=== PATIENT | female | born 2000 | race American Indian/Alaskan Native ===

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

== ENCOUNTER 2022-05-25 12:57 | Emergency (ER) | payer MEDICAID ==
[2022-05-25 14:22] LABS: CORONAVIRUS COVID-19 NAA NEGATIVE (NEGATIVE); RESPIRATORY SYNCYTIAL VIR NAA NEGATIVE (NEGATIVE)
[2022-05-25] MEDS ORDERED: Sodium Chloride 0.9% 10 ML Syringe FLUSH PRN (16:07)
[2022-05-25] MEDS ORDERED: Famotidine 20 MG/2 ML SDV IVPUSH ONE (16:08)
[2022-05-25] MEDS ORDERED: Ondansetron 4 MG/2 ML SDV IV ONE (16:08)
[2022-05-25] MEDS ORDERED: Sodium Chloride 0.9% 1,000 ML IV ONE (16:08)
[2022-05-25 16:54] LABS: ANION GAP 13.7 mEq/L (7-13)
== END 2022-05-25 17:43 | disposition home or self-care (01) ==
LOC: DL.ED 12:57
DX: O99.891 Other specified diseases and conditions complicating pregnancy (principal); R10.13 Epigastric pain; O21.9 Vomiting of pregnancy, unspecified; Z3A.01 Less than 8 weeks gestation of pregnancy; Z20.822 Contact with and (suspected) exposure to COVID-19
CPT/HCPCS: 0241U; 36415; 80053; 81001; 82150; 83690; 84702; 85025; 87081; 87086; 87430; 96361; 96374; 96375; 99284; J2405; J3490; J7030

== ENCOUNTER 2022-08-22 04:30 | Emergency (ER) | payer MEDICAID ==
[2022-08-22] MEDS ORDERED: Ondansetron 4 MG/2 ML SDV IVPUSH ONE (04:59)
[2022-08-22] MEDS ORDERED: Sodium Chloride 0.9% 1,000 ML IV ONE ×2 (04:59→05:59)
[2022-08-22 05:24] LABS: ANION GAP 13.5 mEq/L (7-13)
[2022-08-22] MEDS ORDERED: Sucralfate Suspension 1 GM/10 ML Cup PO ONE (05:57)
== END 2022-08-22 07:00 | disposition home or self-care (01) ==
LOC: DL.ED 04:30
DX: O21.9 Vomiting of pregnancy, unspecified (principal); O99.891 Other specified diseases and conditions complicating pregnancy; R12 Heartburn; Z3A.18 18 weeks gestation of pregnancy; Z86.16 Personal history of COVID-19
CPT/HCPCS: 36415; 80053; 81001; 82150; 83605; 83690; 83735; 84443; 85025; 86140; 96361; 96374; 99284; A9270; J2405; J7030

== ENCOUNTER 2022-11-24 19:27 | Emergency (ER) | payer MEDICAID ==
[2022-11-24] MEDS ORDERED: Sodium Chloride 0.9% 1,000 ML IV ONE ×2 (20:06→23:56)
[2022-11-24] MEDS: Ondansetron 4 MG/2 ML SDV IVPUSH ONE ×2 (20:15→20:17)
[2022-11-24 21:04] LABS: ALBUMIN 2.7 g/dL (3.4-5.0); ANION GAP 14.6 mEq/L (7-13); BILIRUBIN TOTAL 0.9 mg/dL (0.2-1.0); BUN/CREATININE RATIO 14.3 (No establ ref range); C-REACTIVE PROTEIN 0.2 mg/dL (0.0-0.9); CALCIUM 8.6 mg/dL (8.5-10.1); CREATININE 0.56 mg/dL (0.55-1.02); EST CRCL DRUG DOSING (CG) 155.83 mL/min; POTASSIUM,K 3.6 mmol/L (3.5-5.1); PROTEIN TOTAL,TP 6.7 g/dL (6.4-8.2)
[2022-11-24 21:11] LABS: A/G RATIO 0.68
[2022-11-24 21:15] LABS: APPEARANCE,URINE CLEAR (CLEAR); BILIRUBIN,URINE SMALL (NEGATIVE); COLOR,URINE YELLOW (YELLOW); GLUCOSE,URINE NEGATIVE (NEGATIVE); KETONES,URINE >=160 (NEGATIVE); LEUKOCYTE ESTERASE,URINE TRACE (NEGATIVE); NITRITE,URINE NEGATIVE (NEGATIVE); OCCULT BLOOD,URINE NEGATIVE (NEGATIVE); PROTEIN,URINE TRACE (NEGATIVE)
[2022-11-24 22:05] LABS: AMORPHOUS SEDIMENT,URINE FEW /HPF (NOT SEEN); BACTERIA,URINE MODERATE /HPF (0-FEW/HPF); EPITHELIAL CELLS,URINE MANY /HPF (NOT SEEN); MUCUS,URINE RARE /LPF (NOT SEEN); RBC,URINE 0-5 /HPF (0-5); WBC,URINE 0-5 /HPF (0-5/HPF)
[2022-11-24] MEDS ORDERED: Famotidine 20 MG/2 ML SDV IVPUSH ONE (22:26)
[2022-11-24 23:47] LABS: BASOPHILS PERCENT AUTO 0.2 % (0.0-1.0); EOSINOPHILS PERCENT AUTO 1.1 % (1.0-3.0); HEMATOCRIT 30.1 % (37.0-47.0); HEMOGLOBIN 9.5 g/dL (12.0-16.0); LYMPHOCYTES PERCENT AUTO 6.8 % (20.5-50.1); MEAN CORPUSCULAR HEMOGLOBIN 26.2 pg (27.0-34.0); MEAN CORPUSCULAR HGB CONC 31.6 g/dL (33.0-35.0); MEAN CORPUSCULAR VOLUME 82.9 fL (80-100); MONOCYTES PERCENT AUTO 6.4 % (2-8); NEUTROPHILS PERCENT AUTO 85.5 % (42.2-75.2); PLATELET COUNT,PLT 336 10^3/uL (150-450); RED BLOOD CELL COUNT 3.63 10^6/uL (4.2-5.4); WHITE BLOOD CELL COUNT,WBC 12.9 10^3/uL (5.0-10.0)
[2022-11-25] MEDS ORDERED: Take Home: Ondansetron 4 MG Tab.DIS, 5 Tab Pack PO ONE (01:41)
== END 2022-11-25 02:01 | disposition home or self-care (01) ==
LOC: DL.ED 19:27
DX: O21.9 Vomiting of pregnancy, unspecified (principal); O99.891 Other specified diseases and conditions complicating pregnancy; R19.7 Diarrhea, unspecified; Z86.16 Personal history of COVID-19; Z3A.01 Less than 8 weeks gestation of pregnancy
CPT/HCPCS: 36415; 80053; 81001; 85025; 86140; 87086; 96361; 96374; 96375; 99284; J2405; J3490; J7030; Q0162